=== PATIENT | male | born 1975 | race Caucasian/White ===

== ENCOUNTER 2023-10-25 09:24 | Outpatient (CLI) | payer BC, SELFPAY | END 2023-10-25 09:25 | disposition home or self-care (01) | PROVIDERS: PCP Family Medicine; Visit Provider Family Medicine | DX: I10 Essential (primary) hypertension (principal); R35.1 Nocturia; Z12.5 Encounter for screening for malignant neoplasm of prostate; E66.9 Obesity, unspecified | CPT/HCPCS: 80048; 80061; 85025; 87086; G0103 ==

== ENCOUNTER 2023-12-29 16:39 | Outpatient (CLI) | payer BC, SELFPAY ==
--- NOTE | 2024-01-12 08:39 | W.PM.SLEEP ---
Sleep Study Details Details Interpreting Provider: Garrett Date of Sleep Study: 12/29/23 Sleep Study Details: STUDY TYPE:? Home unattended ? BMI:? 38.6 ORDERING PROVIDER:? Maddie INDICATION:? Concerned about sleep apnea ? SLEEP SUMMARY:? 374 minutes monitored RESPIRATORY SUMMARY:? AHI 84.5 Low oxygen 70 48.2% of study oxygen less than 90% Snoring 100% PERIODIC LIMB MOVEMENTS OF SLEEP:? Not record CARDIAC:? Range 43-104, mean 69 IMPRESSION:? Severe obstructive sleep apnea with significant hypo oxygenation RECOMMENDATION: Weight loss is recommended. Would recommend an in-lab titration. An AutoSet CPAP would be acceptable as close follow-up is implemented.
== END 2023-12-29 16:40 | disposition home or self-care (01) ==
LOC: SLEEP 16:44
PROVIDERS: PCP Family Medicine; Visit Provider Family Medicine
DX: G47.33 Obstructive sleep apnea (adult) (pediatric) (principal)
CPT/HCPCS: 95806

== ENCOUNTER 2024-07-26 07:45 | Outpatient (CLI) | payer BC, SELFPAY ==
[2024-07-26] MEDS: PERFLUTREN LIPID MICROSPHERES 2 ML VIAL IVP (08:47)
== END 2024-07-26 07:46 | disposition home or self-care (01) ==
LOC: RAD 07:45
PROVIDERS: PCP Family Medicine; Visit Provider Family Medicine
DX: Q23.81 Bicuspid aortic valve (principal)
CPT/HCPCS: 93306; Q9957

== ENCOUNTER 2024-11-20 13:07 | Outpatient (CLI) | payer BC, SELFPAY | END 2024-11-20 13:08 | disposition home or self-care (01) | PROVIDERS: PCP Family Medicine; Visit Provider Family Medicine | DX: Q23.81 Bicuspid aortic valve (principal) | CPT/HCPCS: 80048; 84550; 85025; 85610; 86850; 86870; 86900; 86901 ==